=== PATIENT | male | born 1960 | race Caucasian/White ===

== ENCOUNTER 2016-11-25 10:59 | Inpatient (IN) ==
[2016-11-27 12:20] VITALS: BP 167/71
== END 2016-11-27 16:00 | disposition home or self-care (01) ==
LOC: P.ED 10:59 → P.MEDSURG 10:59 → SUATTDRO 11:00 → OBSVTOIN 11:00 → P.MEDSURG 14:49
PROVIDERS: ATTEND Internal Medicine

== ENCOUNTER 2016-12-15 13:41 | Inpatient (IN) ==
[2016-12-15] MEDS ORDERED: DUONEB (A & A) INH ONE (13:47)
[2016-12-15 13:57] LABS: MANUAL DIFF NEEDED? NO
[2016-12-15 13:58] LABS: BASO% 0.1 % (0.0-0.8); EOS# 0.23 X1000 (0.0-0.7); EOS% 2.6 % (0.0-10.0); HEMATOCRIT 43.9 % (42.0-52.0); HEMOGLOBIN 15.8 g/dL (14.0-18.0); IMM GRAN# 0.03 X1000 (0.0-0.04); IMM GRAN% 0.3 % (0.0-0.5); LYMPH# 1.19 X1000 (1.2-3.4); LYMPH% 13.5 % (20.5-51.1); MCH 33.8 PG (27-31); MCV 93.8 FL (81-99); MONO# 0.71 X1000 (0.11-0.59); MPV 9.9 FL (7.4-10.4); NEUT% 75.5 % (42.2-75.2); PLT 138 X1000 (130-400); RBC 4.68 XMIL (4.7-6.1)
--- NOTE | 2016-12-15 14:00 | PROVIDER DOCUMENTATION ---
HPI-Respiratory General - General Chief Complaint: Shortness of Breath Stated Complaint: SOB/COPD Time Seen by Provider: 12/15/16 13:56 Source: patient Allergies/Adverse Reactions: Patient Allergies Allergy/AdvReac Type Severity Reaction Status Date / Time No Known Allergies Allergy Verified 10/20/15 02:45 Home Medications: Home Medication List Medication Instructions Recorded Confirmed Last Taken Type Aspirin 81 mg PO QAM 10/20/15 12/15/16 12/15/16 History Cyanocobalamin [Vitamin B-12] 500 microgm PO QAM 10/20/15 12/15/16 12/15/16 History Gabapentin 600 mg PO BID 10/20/15 12/15/16 12/14/16 History Hydrocodone/Acetaminophen [[place] 1 each PO Q6H PRN PRN 10/20/15 12/15/16 History 10-325 Tablet] Metoprolol Tartrate [Lopressor] 100 mg PO QAM 10/20/15 12/15/16 12/15/16 History [place]-3 Fatty Acids [Fish Oil] 1,000 mg PO QAM 10/20/15 12/15/16 12/15/16 History Omeprazole [Prilosec] 20 mg PO BID 10/20/15 12/15/16 12/14/16 History Vitamin E 400 unit PO QA 10/20/15 12/15/16 12/15/16 History Albuterol 2.5MG/Ipratrop 0.5MG 3 ml INH [id number] 11/25/16 12/15/16 12/15/16 History [Duoneb (A & A)] Albuterol Sulfate [Ventolin Hfa] 8 gm IH PRN PRN 11/25/16 12/15/16 12/15/16 History Metformin [Glucophage] 500 mg PO QAM 11/25/16 12/15/16 12/15/16 History Diphenhyramine/Al&mg Oh/Lido [Mbx 30 ml Q2-3H PRN PRN 12/15/16 12/15/16 Unknown History Solution] Azithromycin [Zithromax] 500 mg PO DAILY #7 tablet 12/17/16 Unknown Rx CefDINIR [Omnicef] 300 mg PO BID #14 capsule 12/17/16 Unknown Rx Prednisone See Taper PO DIRECTED #54 tablet 12/17/16 Unknown Rx - History of Present Illness-Resp Nature of Presenting Problem: 56 yom c/o SOB that has increased over the past 2 days. Pt was admitted 2 weeks ago for pneumonia. Pt has a problem with aspiration pneumonia due to his throat cancer. Pt has a hx of COPD also. Quality of Pain: reports: aching Severity in ED: reports: mild Onset/Duration: reports: 3 days ago Timing: reports: still present, getting worse Context: reports: recent URI, aspiration/choking Cough Quality/Degree: reports: moderate, productive cough Episode Frequency: no prior episodes Current Respiratory Medication Therapy: Initiated see nurses note Similar Symptoms Previously?: No Recently seen or treated by another doctor?: No Review of Systems - Adult - REVIEW OF SYSTEMS - ADULT Constitutional: reports: see HPI Eyes: reports: no symptoms reported Ears, Nose, Mouth & Throat: reports: see HPI Cardiovascular: reports: no symptoms reported Respiratory: reports: see HPI, cough, dyspnea on exertion, excessive sputum production, shortness of breath Gastrointestinal: reports: no symptoms reported Genitourinary: reports: no symptoms reported Musculoskeletal: reports: no symptoms reported Integumentary: reports: no symptoms reported Neurological: reports: no symptoms reported Psychiatric: reports: no symptoms reported Endocrine: reports: no symptoms reported Hematologic/Lymphatic: reports: no symptoms reported Allergic/Immunologic: reports: no symptoms reported All Other Systems: Reviewed and Negative Past History - Adult - PAST MEDICAL HISTORY-ADULT Review of Records: reports: Old Records Reviewed, Nursing Assessment Review, Medications Reviewed, Social history reviewed & non-contributory. Major Childhood Illnesses: reports: denies history Cardiovascular: reports: HTN, hyperlipidemia, PVD Respiratory: reports: COPD Gastrointestinal: reports: GERD Obstetrical/Gynecological: reports: denies history Genitourinary: reports: denies history Musculoskeletal: reports: other fractures, orthopedic injury Neurological: reports: denies history Endocrine/Immune: reports: Diabetes Other Conditions: reports: denies history - PRIOR SURGERIES/PROCEDURES Surgical/Procedure History: reports: CABG, cardiac stent (x5 ), orthopedic ( extremity), other (facial reconstruction) - IMMUNIZATION STATUS Childhood Immunizations: See Nurse Assessment Flu Vaccine: See Nurse Assessment - FAMILY HISTORY Family History: reviewed, not pertinent Physical Exam-General - PHYSICAL EXAM-ADULT Initial Vital Signs Reviewed: Yes - CONSTITUTIONAL General Appearance: appears well, alert, no apparent distress - EYES Eyes: PERRL/EOMI, pink conjunctivae - HEAD, EARS, NOSE, MOUTH & THROAT HENMT: normocephalic/atraumatic, moist mucous membranes, normal ENT inspection - NECK Neck: non-tender, full range of motion, supple, normal inspection - RESPIRATORY Respiratory: chest non-tender, lungs clear, normal breath sounds, no pleuratic chest pain, no respiratory distress, no accessory muscle use - CARDIOVASCULAR Cardiovascular: normal peripheral pulses, regular rate, rhythm, no edema - GASTROINTESTINAL (ABDOMEN) Abdominal Exam: normal bowel sounds, non tender, soft, no organomegaly, no pulsatile mass - LYMPHATIC Lymphatic: no adenopathy - MUSCULOSKELETAL Back Exam: normal inspection, no CVA tenderness, no vertebral tenderness Extremity: normal range of motion, non-tender, normal gait Peripheral Pulses: radial (R): 2+, radial (L): 2+, dorsalis-pedis (R): 2+, dorsalis-pedis (L): 2+ - SKIN Integumentary: normal color, normal turgor, warm/dry - NEUROLOGIC Neurologic: grossly normal, no motor/sensory deficits - PSYCHIATRIC Psych/Mental Status: normal mood/affect, normal thought content, normal thought process, oriented x 3 Progress - PLAN OF CARE/RESULTS Progress/Plan/Lab Results: Orders Category Date Time Status Admit - [facility] Routine AdmDCTranf 12/15/16 15:28 Ordered Activity - Up Ad Gayle ORDERED Care 12/15/16 15:28 Completed Saline Loc DIRECTED Care 12/15/16 13:48 Completed Vital Signs Order Q 8-HR ASSESS Care 12/15/16 15:28 Active CHEST-2 VIEWS [RAD] Stat Exams 12/15/16 13:48 Completed ABG [RESP] Routine Lab 12/15/16 13:50 Completed BLOOD CULTURE [BLDCUL] Stat Lab 12/15/16 15:14 Results BNP [PRO B-NATRIURETIC PEPTIDE] Stat Lab 12/15/16 13:50 Completed CBC WITH DIFF [HEME] Stat Lab 12/15/16 13:50 Completed COMPREHENSIVE METABOLIC PANEL [CHEM] Stat Lab 12/15/16 13:50 Completed LACTATE, PLASMA [CHEM] Stat Lab 12/15/16 15:25 Completed Albuterol 2.5MG/Ipratrop 0.5MG [Duoneb (A & A)] Med 12/15/16 13:47 Discontinued 3 ml INH NOW ONE CefTRIAXONE 1 GM/NS [Rocephin 1 gm/Ns] Med 12/15/16 14:59 Discontinued 1 gm in 50 ml IV NOW Clonidine [Catapres] Med 12/15/16 15:18 Discontinued 0.2 mg PO NOW ONE Aerosol Treatments Routine Ot 12/15/16 13:48 Completed Aerosol Treatments Stat Ot 12/15/16 13:48 Completed Aerosol Treatments Stat Ot 12/15/16 13:48 Completed Oxygen Device Routine Ot 12/15/16 15:29 Completed Pulse Oximetry Stat Ot 12/15/16 13:48 Completed Transfer/Admit Order [TRANSFER] Routine Transfer 12/15/16 15:29 Completed Result Diagrams: 12/17/16 05:35 12/17/16 05:35 - XRAY 1 XRAY Study: Chest Impression: See EMR Report (mild infrahilar infiltrate) Departure - Departure Date of Disposition Decision: 12/21/16 Time of Disposition Decision: 00:40 DIAGNOSIS: Pneumonia Qualifiers: Pneumonia type: due to unspecified organism Laterality: unspecified laterality Lung location: unspecified part of lung Qualified Code(s): J18.9 - Pneumonia, unspecified organism Disposition: ADMITTED INPATIENT 09 Certified Medical Emergency: Emergent Condition: Stable - Critical Care Note This patient required my direct & personal management of CC.: No Attestation - Physician/ LOUIS Attestation Patient care was provided by Advanced Practice Provider:: Yes Advanced Practice Provider:: Osmar Cabezas (Dr. Calderon agrees with admission.) Advanced Practice Provider documentation review:: The Mid-level provider documentation, treatment plan and medical decision making was reviewed by the physician who agrees with all treatment and medical decision making by the MLP.
[2016-12-15 14:15] LABS: BE 0.9 mmoll (-3.0-3.0); BLOOD TYPE ARTERIAL; DRAW SITE R RADIAL; METHB 1.1 % (0.0-1.5); O2(CT) 18.9 mL/dL (15.0-23.0); PCO2(98.6) 39 mmHg (35-45); PO2(98.6) 59 mmHg (60-100); SAMPLE BLOOD; THB 15.2 g/dL (11.5-17.4); pH(98.6) 7.42 (7.35-7.45)
[2016-12-15 14:32] LABS: MODALITY ROOM AIR
[2016-12-15 14:33] LABS: ALLEN TEST YES
--- NOTE | 2016-12-15 14:47 | Diag Imaging Result Doc PS360 ---
EXAM: CHEST-2 VIEWS - 12/15/2016 HISTORY: sob TECHNIQUE: Chest two views COMPARISON: 11/25/2016 FINDINGS: Heart size appears within normal limits. There are sternal wires from previous surgery again seen. There is mild prominence of infrahilar markings on the left. The remainder of the lungs appear clear. There is no pleural effusion or pneumothorax seen. There is thoracic spondylosis noted. IMPRESSION: Mild infrahilar infiltrate or atelectasis on the left. Electronically signed by Nikolai Yen 12/15/2016 2:44 PM
[2016-12-15 14:54] LABS: AGAP 12; ALBUMIN 3.7 g/dL (3.5-5.0); ALKALINE PHOSPHATASE 151 U/L (32-122); BUN 5 mg/dL (8-22); CALCIUM 8.5 mg/dL (8.8-10.2); CHLORIDE 88 mmol/L (98-107); COSMO 249; GOT 27 U/L (10-34); GPT 11 U/L (10-44); POTASSIUM 3.9 mmol/L (3.5-5.1); SODIUM 124 mmol/L (136-145); TCO2 23 mmol/L (25-35); TOTAL PROTEIN 7.1 g/dL (6.3-8.3)
[2016-12-15] MEDS ORDERED: ROCEPHIN 1 GM/NS 1 GM/50 ML IVPB IV ONE (14:59)
[2016-12-15] MEDS ORDERED: CATAPRES PO ONE (15:18)
[2016-12-15] MEDS ORDERED: SALINE LOCK IV FLUID XX ONE (16:17)
[2016-12-15] MEDS ORDERED: ZOFRAN IV PRN (16:17)
[2016-12-15] MEDS ORDERED: TYLENOL PO PRN (16:17)
[2016-12-15] MEDS: ROCEPHIN 1 GM/NS 1 GM/50 ML IVPB IV SCH (17:09)
[2016-12-15] MEDS: NS 1,000 ML IV SCH (17:09)
[2016-12-15] MEDS: SOLU-MEDROL IV SCH (17:10)
[2016-12-15] MEDS ORDERED: ZITHROMAX 500 MG/NS 500 MG/250 ML IVPB IV SCH (18:00)
[2016-12-15] MEDS: DUONEB (A & A) INH SCH ×2 (19:17→22:53)
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
[2016-12-15] MEDS: NEURONTIN PO SCH (21:19)
[2016-12-15] MEDS: NORCO-10 PO PRN (21:20)
[2016-12-15] MEDS: PRILOSEC PO SCH (21:20)
[2016-12-16] MEDS: DUONEB (A & A) INH SCH ×6 (02:56→23:52)
[2016-12-16] MEDS: SOLU-MEDROL IV SCH ×3 (03:04→18:32)
[2016-12-16] MEDS: NS 1,000 ML IV SCH ×3 (03:04→22:01)
[2016-12-16] MEDS: NORCO-10 PO PRN ×3 (05:57→18:38)
[2016-12-16 06:58] LABS: HEMOGLOBIN 15.4 g/dL (14.0-18.0); IMM GRAN# 0.01 X1000 (0.0-0.04); IMM GRAN% 0.1 % (0.0-0.5); LYMPH# 0.31 X1000 (1.2-3.4); LYMPH% 4.5 % (20.5-51.1); MANUAL DIFF NEEDED? YES; MCH 33.1 PG (27-31); MCV 94.6 FL (81-99); MONO# 0.05 X1000 (0.11-0.59); MONO% 0.7 % (1.7-9.3); MPV 10.2 FL (7.4-10.4); NEUT% 94.7 % (42.2-75.2); PLT 156 X1000 (130-400); RBC 4.65 XMIL (4.7-6.1)
[2016-12-16 08:00] LABS: AGAP 13; BUN 6 mg/dL (8-22); CALCIUM 8.8 mg/dL (8.8-10.2); CHLORIDE 96 mmol/L (98-107); COSMO 276; POTASSIUM 3.6 mmol/L (3.5-5.1); SODIUM 134 mmol/L (136-145); TCO2 25 mmol/L (25-35)
[2016-12-16] MEDS ORDERED: ZITHROMAX 500 MG/NS 500 MG/250 ML IVPB IV SCH (08:23)
[2016-12-16 08:34] LABS: LYMPHS 4 % (21-51); MONO 1 % (1-9)
[2016-12-16] MEDS: VITAMIN B-12 PO SCH (09:28)
[2016-12-16] MEDS: ASPIRIN PO SCH (09:28)
[2016-12-16] MEDS: FISH OIL CONCENTRATE PO SCH (09:28)
[2016-12-16] MEDS: PRILOSEC PO SCH ×2 (09:28→20:45)
[2016-12-16] MEDS: LOPRESSOR PO SCH (09:28)
[2016-12-16] MEDS: NEURONTIN PO SCH ×2 (09:28→20:45)
[2016-12-16] MEDS: VITAMIN E PO SCH (09:29)
[2016-12-16] MEDS: ZITHROMAX PO SCH (09:29)
[2016-12-16] MEDS: MBX SOLUTION MT PRN ×2 (11:37→17:16)
--- NOTE | 2016-12-16 14:59 | PROGRESS NOTE ---
DATE: 12/16/2016 SUBJECTIVE: Patient states he may feel a little bit better today. He has a little less shortness of breath. He denies chest pain, palpitations, dizziness, syncope. OBJECTIVE: Vital Signs: Blood pressure is 145/74, with a heart rate of 70, respirations are 18- 20, with oxygen saturations of 95 to 97% on 2 L nasal cannula. Cardiovascular: Regular rate and rhythm. S1, S2 appreciated. Pulmonary: He does have some rhonchi scattered throughout they do not clear to cough. He has no increased work of breathing noted. Gastrointestinal: Abdomen is soft, nontender, nondistended. Bowel sounds in all 4 quadrants. Extremities: No clubbing, cyanosis or edema. Calves are nontender. Pulses are palpable x4. Neurologic: He is alert and oriented x3. ASSESSMENT: 1. Acute chronic obstructive pulmonary disease exacerbation. 2. Hyponatremia. 3. Hypertension. 4. Diabetes mellitus. PLAN: We will continue with the current regimen. We will decrease steroids. Recheck labs in the morning. Dictated by ALISSA Oro for Loco Morse MD cc: ALISSA Oro MD
[2016-12-16] MEDS: ROCEPHIN 1 GM/NS 1 GM/50 ML IVPB IV SCH (17:16)
[2016-12-16] MEDS: HUMALOG DOSE (PARKWAY) SUBQ SCH (20:45)
[2016-12-17] MEDS: NORCO-10 PO PRN ×3 (00:36→12:56)
[2016-12-17] MEDS: SOLU-MEDROL IV SCH ×2 (02:05→11:21)
[2016-12-17] MEDS: DUONEB (A & A) INH SCH ×3 (03:23→11:28)
[2016-12-17] MEDS: HUMALOG DOSE (PARKWAY) SUBQ SCH ×2 (06:32→11:21)
[2016-12-17 06:56] LABS: HEMATOCRIT 44.4 % (42.0-52.0); HEMOGLOBIN 15.1 g/dL (14.0-18.0); MCH 32.5 PG (27-31); MCV 95.7 FL (81-99); MPV 10.3 FL (7.4-10.4); RBC 4.64 XMIL (4.7-6.1)
[2016-12-17 07:09] LABS: AGAP 11; ALBUMIN 3.8 g/dL (3.5-5.0); ALKALINE PHOSPHATASE 158 U/L (32-122); BUN 9 mg/dL (8-22); CALCIUM 8.8 mg/dL (8.8-10.2); CHLORIDE 100 mmol/L (98-107); COSMO 279; GOT 15 U/L (10-34); GPT 9 U/L (10-44); POTASSIUM 3.9 mmol/L (3.5-5.1); SODIUM 135 mmol/L (136-145); TCO2 24 mmol/L (25-35); TOTAL PROTEIN 6.6 g/dL (6.3-8.3)
[2016-12-17] MEDS: VITAMIN E PO SCH (08:49)
[2016-12-17] MEDS: LOPRESSOR PO SCH (08:49)
[2016-12-17] MEDS: PRILOSEC PO SCH (08:49)
[2016-12-17] MEDS: ASPIRIN PO SCH (08:50)
[2016-12-17] MEDS: VITAMIN B-12 PO SCH (08:50)
[2016-12-17] MEDS: FISH OIL CONCENTRATE PO SCH (08:50)
[2016-12-17] MEDS: ZITHROMAX PO SCH (08:50)
[2016-12-17] MEDS: NEURONTIN PO SCH (08:50)
[2016-12-17 14:25] VITALS: BP 180/70
--- NOTE | 2016-12-18 13:22 | DISCHARGE SUMMARY ---
ADMISSION DATE: 12/15/2016 DISCHARGE DATE: 12/17/2016 DIAGNOSES: 1. Acute on chronic obstructive pulmonary disease exacerbation. 2. Hyponatremia. 3. Hypertension. 4. Diabetes mellitus, type 2. 5. History of throat cancer, status post XRT. DIAGNOSTICS: 12/15/2016 chest x-ray revealed atelectasis on the left. MICROBIOLOGY: Blood cultures x2 revealed no growth after 48 hours. HOSPITAL COURSE: Mr. Lebron presented to the emergency room complaining of shortness of breath for the 48 hours prior to presentation. He stated he could not lay flat to sleep, but he had a room air O2 saturation of 96% on admission to the ER with a CO2 of 39 and a PO2 of 59. He was treated with DuoNeb q.4 hours to q.2 hours p.r.n. with steroids to taper as well as pulmonary toilet, Rocephin and Zithromax for IV coverage. He did improve during the hospitalization, and feels ready to go home. Blood sugars ranged in the 140s to 270s range. He was given sliding scale insulin. We did trend electrolytes and replete as appropriate. DISCHARGE PHYSICAL EXAMINATION: Cardiovascular: Regular rate and rhythm. S1 and S2 appreciated. Pulmonary: He does have some scattered rhonchi, but they do clear to cough. He has no increased work of breathing noted. Gastrointestinal: Abdomen is soft, nontender, and nondistended, with bowel sounds in all 4 quadrants. Extremities: No clubbing, cyanosis, or edema. Calves nontender. Pulses palpable x4. Neurologic: He is alert and oriented x3. DISCHARGE MEDICATIONS: MBX solution 30 mL every 2-3 hours as needed. DuoNeb 4 times a day. Aspirin 81 mg daily. Ventolin HFA p.r.n. Gabapentin 600 b.i.d. Vitamin B12 at 500 mcg daily. Metformin 500 mg q.a.m. [place] 10/325 q.6 hours p.r.n. Prilosec 20 mg b.i.d. Fish oil daily. Lopressor 100 mg q.a.m. Vitamin E 400 q.a.m. Omnicef 300 mg p.o. b.i.d. Zithromax 500 mg daily. Prednisone taper FOLLOWUP: He needs to follow up with his primary care physician within the next week, sooner if needed. He is being discharged home in stable condition with family members. TIME SPENT: This is a greater than 30 minute discharge. Dictated by ALISSA Oro for Loco Morse MD cc: ALISSA Oro MD
== END 2016-12-17 14:40 | disposition home or self-care (01) ==
LOC: P.ED 13:41 → P.MEDSURG 13:41 → OBSVTOIN 15:39 → SUATTDRO 15:39
PROVIDERS: ATTEND Family Medicine